=== PATIENT | female | born 1995 | race Two or more races ===

== ENCOUNTER 2024-02-02 11:11 | Outpatient (AMB) | payer OTHER, SELFPAY ==
--- NOTE | 2024-02-02 11:13 | A.OFFPC_ITS ---
Vital Signs 02/02/24 11:14 Height 5 ft 4 in Weight 153 lb BMI 26.3 BP 114/68 Blood Pressure Location Lt brachial Position Sitting Intake Visit Reasons: PE Intake Note: Patient here for a physical exam Roper Operator Required: No Accompanied by: Self / Same As Patient Allergies No Known Allergies Allergy (Verified 02/02/24 11:22) Medication List - Last Reconciled 02/02/24 by Kervin Darden PA-C No Known Home Meds Tobacco use date assessed: 02/02/24 Dental Screening Dental Screen Date: 02/02/24 Did you have a dental visit in the last 12 months?: Yes Did you have a dental problem in the last 6 months where you did not have access to dental care?: No Was dental information given to patient?: Patient has dentist HPI PE HPI Details Patient is a 28-year-old female here today for a new patient annual physical. Patient recently had a baby boy born prematurely. There has been complication. concerns--> patient reports she has been having some difficulty with her mood and anxiety as she has had a premature baby in December to have complications with her kidney and now in NICU with [place]. She is interested in mental health therapist and also interested in starting medication to help her with her mood and anxiety. 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 Vaccine: Declines COVID vacc, interested in getting flu shot, she does report getting tetanus vaccine during a . [facility] Surgical History No pertinent past surgical history Family History Maternal Aunt Breast cancer associated with mutation in NEO gene Social History (Updated 02/02/24 @ 11:33 by Kervin Darden PA-C) Housing: Apartment Alcohol intake: current Alcohol intake frequency: holidays/special occasions only Patient Tobacco Use Status: Never used Tobacco e-Cigarette/Vaping Use: Never Used Second Hand Smoke Exposure: No Substance Use Type: Marijuana service: No Current occupational status: employed Current occupation: [employer] Current occupational exposures/hazards: No Cognitive needs: No Hearing needs: No Vision needs: No Questionnaire PHQ-9 Over the last 2 weeks, how often have you been bothered by any of the following problems? 1. Little interest or pleasure in doing things: several days 2. Feeling down, depressed, or hopeless: several days 3. Trouble falling or staying asleep, or sleeping too much: several days 4. Feeling tired or having little energy: more than half the days 5. Poor appetite or overeating: more than half the days 6. Feeling bad about yourself - or that you are a failure or have let yourself or your family down: not at all 7. Trouble concentrating on things, such as reading the newspaper or watching television: not at all 8. Moving or speaking so slowly that other people could have noticed. Or the opposite - being so fidgety or restless that you have been moving around a lot more than usual: not at all 9. Thoughts that you would be better off or of hurting yourself in some way: not at all Total score: 7 Depression Screening Interpretation: Positive Depression Screening Follow-up: Existing condition Depression Screening Done: Yes 41729 - PHQ-9 Billing: Yes Source: Developed by Drs. Sam Dean, Gisela Leyva, Lincoln Barraza and colleagues, with an educational yumi from [employer]. Thrive Questionnaire Date Thrive assessed: 01/31/24 I am a: Patient What is your living situation today?: I have a steady place to live Within the past 12 months, did the food you bought not last and you didn't have the money to get more?: Never true Within the past 12 months, did you worry whether your food would run out before you got money to buy more?: Never true Do you have trouble paying for medicines?: No Do you have trouble getting transportation to medical appointments?: No Do you have trouble paying your heating and electricity bill?: No Do you have trouble taking care of your child, family member or friend?: No Do you have trouble with day-to-day activities such as bathing, preparing meals, shopping, managing finances, etc.?: No Are you currently unemployed and looking for a job?: No Are you interested in more education?: No Please select the resources that you would like help with: None Currently or been in a relationship where the following occur: No concerns reported THRIVE Score: 0 AUDIT C Alcohol Use Questionnaire (AUDIT-C) 1. How often do you have a drink containing alcohol?: Monthly or less 2. How many drinks containing alcohol do you have on a typical day when you are drinking?: 3 or 4 3. How often do you have six or more drinks on one occasion?: Less than monthly Total Score: 3 QUANG-7 AMB Questionnaire QUANG-7 Date QUANG - 7 assessed: 02/02/24 Feeling nervous, anxious, or on edge: 3 = Nearly every day Not being able to stop or control worryin = Nearly every day Worrying too much about different things: 3 = Nearly every day Trouble relaxin = Nearly every day Being so restless that it is hard to sit still: 0 = Not at all Becoming easily annoyed or irritable: 3 = Nearly every day Feeling afraid as if something awful might happen: 0 = Not at all Total QUANG-7 score (0-4 normal; 5-9 mild; 10-14 moderate; 15-21 severe): 15 Source: Developed by Drs. Sam Dean, Gisela Leyva, Lincoln Barraza and colleagues, with an educational yumi from [employer]. UQANG-7 Assessment Billing QUANG-7 Assessment Tool: QUANG-7 Assessment 43207 Review of Systems Const Denies body aches, Denies chills, Denies excessive sweating, Denies fatigue, Denies fever(s) and Denies headache(s) Eyes Denies blurry vision ENT Denies dysphagia, Denies vertigo, Denies dizziness, Denies headache(s), Denies hearing loss and Denies tinnitus Card Denies chest pain, Denies chest pain with activity, Denies syncope, Denies irregular heart rhythm and Denies dyspnea Resp Denies chest congestion, Denies cough, Denies hemoptysis, Denies dyspnea and Denies wheezing GI Denies abdominal pain, Denies melena, Denies hematochezia, Denies coffee ground emesis, Denies dysphagia, Denies diarrhea, Denies nausea and Denies vomiting Denies urinary frequency, Denies dysuria, Denies urinary hesitancy and Denies urinary urgency Musc Denies arthralgias, Denies limited range of motion, Denies muscle cramps and Denies muscle weakness Skin/Breast Denies rash and Denies skin ulcer Neuro Denies Abnormal speech present, Denies confusion, Denies vertigo, Denies dizziness, Denies syncope, Denies headache(s), Denies memory loss and Denies seizure-like activity Psych Denies anxiety, Denies confusion, Denies depression, Denies memory loss, Denies panic attacks and Denies paranoia Endo Denies excessive sweating, Denies fatigue, Denies flushing, Denies polydipsia and Denies polyuria Aller/Immun Denies wheezing Physical exam (Primary Care) Vital Signs: Last Vital Signs BP 114/68 02/02/24 11:14 BMI result Body Mass Index 26.3 Tobacco/Smoking Status: Tobacco use Status Tobacco use date assessed 02/02/24 02/02/24 11:17 Patient Tobacco Use Status Never used Tobacco 02/02/24 11:33 e-Cigarette/Vaping Use Never Used 02/02/24 11:33 PHQ-9: PHQ-9 Score PHQ-9: Total score 7 02/02/24 11:43 Depression Screening Interpretation: Positive Depression Screening Follow-up: Existing condition Thrive Assessment: Date of Thrive Assessment Date Thrive assessed 01/31/24 02/02/24 11:17 Currently or been in a relationship where the following occur: No concerns reported Const General: cooperative, comfortable, no acute distress, alert and awake; No confusion Orientation/consciousness: oriented to person, oriented to place, patient oriented x3 and No confusion HENMT Head: Yes normocephalic Ears: external ears normal and TM's normal bilaterally Face and sinus: No sinus tenderness Mouth: Normal oral and palatal mucosa present and tongue normal Teeth and gingiva: dentition normal and gingiva normal Throat: Yes posterior oropharynx normal, Yes tonsils normal and Yes uvula midline Eyes Conjunctivae: conjunctivae normal Sclerae: sclerae normal Pupils: Equal, round and reactive pupils present EOM: EOMs intact bilaterally Direct Ophthalmoscopy: No no photophobia Neck Neck: Yes no lymphadenopathy, No tender and Yes no JVD Thyroid: Thyroid normal Carotids: no bruits Chest Chest palpation & inspection: no tenderness Resp Effort & Inspection: normal respiratory effort, no audible wheezes, not labored and no stridor Auscultation: no crackles, no rales, no rhonchi and no wheezes Cardio Jugular venous distension: no JVD Rate: regular rate, not bradycardic and not tachycardic Rhythm: regular rhythm Bruits: no carotid bruits Peripheral pulses: Peripheral pulses 2+ throughout GI Inspection: Yes normal to inspection, No abdominal wall ecchymosis and No visible herniation Palpation (GI): Soft to palpation, nontender, no guarding, not rigid and No hepatosplenomegaly present Auscultation: normoactive bowel sounds General: Yes no CVA tenderness Back/Spine/Pelvis Back: no CVA tenderness and No back tenderness Cervical Spine: cervical ROM normal Thoracic/Lumbar Spine: thoracic and lumbar spine normal to inspection, straight leg raise negative bilaterally, No thoraco-lumbar ROM limited and No lumbar spinal tenderness Skin Lesions: no lesions Rashes: no rashes Wounds: no wounds Neuro General: oriented to person, oriented to place, patient oriented x3, CN's II-XI intact bilaterally and No confusion Cranial nerves: Yes Equal, round and reactive pupils present and Yes Normal accommodation reflex present Cognition (Neuro): normal cognition Speech: No Abnormal speech present Gait exam (Neuro): Normal gait present Motor exam (neuro): 5/5 motor strength present throughout Extrem Right upper extremity: full ROM; no cyanosis Left upper extremity: full ROM; no cyanosis Right lower extremity: no edema Left lower extremity: no edema Psych Appearance: grossly normal Mental Status: mental status grossly normal Affect: normal affect Attitude: cooperative Thought process: Normal thought process present Office Procedures Flu Questionnaire Does the patient have a severe egg allergy?: No Does the patient have severe life threatening allergies?: No Does the patient have a fever or illness today?: No Has the patient ever had Guillain-[place]awnee Syndrome?: No Has the patient ever had any past reaction to a flu shot?: No Immunizations Fluarix Triv [id number] (PF) 45 mcg (15 mcg x 3)/0.5 mL IM syringe Performing Provider: Kervin Darden PA-C [facility] Administered by: YOSI Louis on 02/02/24 11:43 Dose Route Admin Location Dispensed Lot Number Expiration Date [employer] 0.5 mL IM Left Deltoid 0.5 mL [id number] 10/31/24 [id number] [employer] VIS Given Date VIS Provided VIS Publication Date 02/02/24 Single Vaccine 20 Eligibility Eligibility Date Funding Source Not [facility] Eligible 02/02/24 Private Coding Level of Care Code Est Pt Prev Care 18-39y(04093) Diagnoses Annual physical exam Z00.00 anxiety O99.345; F41.8 Additional Codes QUANG-7 Assessment Billing - QUANG-7 Assessment Tool: QUANG-7 Assessment 26052 ([id number]) Assessment & Plan Assessment & Plan (1) Annual physical exam: Code(s): Z00.00 - Encounter for general adult medical examination without abnormal findings Category: Medical Plan: As per HPI (2) anxiety: Code(s): O99.345 - Other mental disorders complicating the puerperium; F41.8 - Other specified anxiety disorders Category: Medical Plan: Patient's QUANG-7 score positive for moderate anxiety. As per HPI patient seems to have been suffering with a anxiety syndrome. She is willing to try sertraline 50 mg daily. She is also interested in setting up with a mental health therapist to talk things throat. Will follow up in 4 weeks to evaluate the effectiveness of the SSRI therapy. Orders: Orders Complete Blood Count no Diff Today Z13.1 - Encounter for screening for diabetes mellitus Influenza [id number] Immunization Today Z23 - Encounter for immunization Comprehensive [place]. Panel Fast Today Z13.1 - Encounter for screening for diabetes mellitus Referrals Counseling Referral F41.8 - Other specified anxiety disorders, O99.345 - Other mental disorders complicating the puerperium Medications: New sertraline 50 mg PO DAILY 30 tabs 1RF 30 days F41.8 - Other specified anxiety disorders, O99.345 - Other mental disorders complicating the puerperium
[2024-02-02 11:14] VITALS: BP 114/68; BMI 26.3
== END 2024-02-02 11:49 | disposition home or self-care (01) ==
PROVIDERS: PCP Physician Assistant; Visit Provider Physician Assistant
DX: Z00.00 Encounter for general adult medical examination without abnormal findings (principal); O99.345 Other mental disorders complicating the puerperium; F41.8 Other specified anxiety disorders; Z23 Encounter for immunization

== ENCOUNTER → 2024-02-02 11:11 | Outpatient (BNVA) | payer OTHER, SELFPAY | PROVIDERS: PCP Physician Assistant; Visit Provider Physician Assistant | DX: Z00.01 Encounter for general adult medical examination with abnormal findings (principal); Z23 Encounter for immunization; O99.345 Other mental disorders complicating the puerperium; F41.8 Other specified anxiety disorders | CPT/HCPCS: 90471; 90656; 96127; 99395 ==

== ENCOUNTER 2024-03-07 14:19 | Outpatient (AMB) | payer OTHER, SELFPAY ==
--- NOTE | 2024-03-07 14:18 | MHC.PC.OV ---
Intake Visit Reasons: Follow-up anxiety (telehealth) Allergies No Known Allergies Allergy (Verified 02/02/24 11:22) Tobacco use date assessed: 02/02/24 Dental Screening Dental Screen Date: 02/02/24 HPI Follow-up anxiety (telehealth) HPI Details Patient is 28-year-old female being evaluated today via telephone only. At last visit we discussed her anxiety and she was interested in starting SSRI therapy. She reports she did start taking sertraline for a few weeks and found it effective though she has stopped taking the medication due to her son coming back Home from the hospital. Unfortunately her son return back to the hospital due to complications. Has restarted the medication since her has son return back to the hospital. She will be calling [facility] to start therapy. [facility] Surgical History No pertinent past surgical history Family History Maternal Aunt Breast cancer associated with mutation in NEO gene Social History Housing: Apartment Alcohol intake: current Alcohol intake frequency: holidays/special occasions only Patient Tobacco Use Status: Never used Tobacco e-Cigarette/Vaping Use: Never Used Second Hand Smoke Exposure: No Substance Use Type: Marijuana service: No Current occupational status: employed Current occupation: [employer] Current occupational exposures/hazards: No Cognitive needs: No Hearing needs: No Vision needs: No Questionnaire Thrive Questionnaire Date Thrive assessed: 01/31/24 QUANG-7 AMB Questionnaire QUANG-7 Date QUANG - 7 assessed: 02/02/24 Source: Developed by Drs. Sam Dean, Gisela Leyva, Lincoln Barraza and colleagues, with an educational yumi from [employer] Review of Systems Const Denies headache(s) Eyes Denies loss of vision ENT Denies vertigo, Denies dizziness, Denies headache(s) and Denies sore throat Card Denies chest pain, Denies leg edema and Denies lightheadedness Resp Denies cough, Denies hemoptysis and Denies wheezing GI Denies abdominal pain, Denies melena, Denies constipation, Denies diarrhea and Denies vomiting Denies urinary frequency, Denies dysuria and Denies urinary urgency Musc Denies arthralgias, Denies joint swelling, Denies numbness and Denies tingling Neuro Denies behavioral changes, Denies vertigo, Denies dizziness, Denies headache(s), Denies loss of vision, Denies memory loss, Denies numbness and Denies tingling Psych Reports anxiety, Denies behavioral changes, Denies depression, Reports difficulty concentrating, Reports irritability, Denies memory loss and Denies panic attacks Sean/Lymph Denies easy bleeding and Denies easy bruising Aller/Immun Denies wheezing Physical exam (Primary Care) Tobacco/Smoking Status: Tobacco use Status Tobacco use date assessed 02/02/24 03/07/24 14:18 Patient Tobacco Use Status Never used Tobacco 03/07/24 14:18 e-Cigarette/Vaping Use Never Used 03/07/24 14:18 Thrive Assessment: Date of Thrive Assessment Date Thrive assessed 01/31/24 03/07/24 14:18 Telehealth Telehealth Telehealth Platform: Telephone Location of provider rendering services: practice address Location of patient: address on file Patient Identification confirmed using: Name, : Yes Telehealth method: voice only Patient verbally consented to treatment: Yes Patient verbally consented to billing insurance company: Yes Patient informed of any privacy concerns related to visit: Yes Minutes spent on Phone/Video with Pt.: 11 Coding Level of Care Code Tele Est Pt Level 3 (52294) Diagnoses anxiety O99.345; F41.8 Assessment & Plan Assessment & Plan (1) anxiety: Code(s): O99.345 - Other mental disorders complicating the puerperium; F41.8 - Other specified anxiety disorders Category: Medical Plan: Patient reports her anxiety is a bit better though still has her moments . She does find benefit from SSRI therapy when taking it consistently. She reports she was start taking this medication more consistently . She will be calling to set up an appointment with cognitive behavioral therapy Medications: Refilled sertraline 50 mg PO DAILY 30 tabs 1RF 30 days F41.8 - Other specified anxiety disorders, O99.345 - Other mental disorders complicating the puerperium
== END 2024-03-07 16:48 | disposition home or self-care (01) ==
LOC: HO.HMCH 14:19
PROVIDERS: PCP Physician Assistant; Visit Provider Physician Assistant
DX: O99.345 Other mental disorders complicating the puerperium (principal); F41.8 Other specified anxiety disorders

== ENCOUNTER 2025-02-09 10:17 | Outpatient (AMB) | payer OTHER, SELFPAY ==
--- NOTE | 2025-02-09 10:37 | A.OFFPC_ITS ---
Vital Signs 02/09/25 10:38 Height 5 ft 4 in Weight 168 lb 6 oz BMI 28.9 BP 130/68 Blood Pressure Location Lt brachial Position Sitting Pulse 94 Pulse Source Pulse Oximeter Temp 97.3 F Temp Source Temporal Artery Scan Pulse Oximetry (%) 98 Oxygen Delivery Method Room Air Intake Visit Reasons: annual exam Intake Note: Patient is here today for a physical. 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 Hospice Case Manager: Not Required per policy Accompanied by: Self / Same As Patient Allergies No Known Allergies Allergy (Verified 02/09/25 11:02) Medication List - Last Reconciled 02/09/25 by Kervin Darden PA-C sertraline 50 mg PO DAILY 30 days Tobacco use date assessed: 02/09/25 Dental Screening Dental Screen Date: 02/09/25 Did you have a dental visit in the last 12 months?: Yes Did you have a dental problem in the last 6 months where you did not have access to dental care?: No Was dental information given to patient?: Patient has dentist HPI annual exam HPI Details Patient is a 29-year-old female here today for a annual physical Patient recently had a baby boy born prematurely. There has been complication. ? Environmental allergies: The patient reports symptoms of allergic rhinitis, including nasal congestion, sneezing, and itchy eyes, which began after acquiring kittens. These symptoms are more pronounced at home and have been partially alleviated by using an air purifier. Grief : The patient is experiencing a grief reaction following the recent of her son, with symptoms of sadness and anxiety. She finds some relief in talking to her sister but is considering professional therapy for additional support. Left knee pain: The patient reports left knee pain that began spontaneously, described as a stuck sensation, with discomfort during bending or kneeling. There is no swelling, and her sister's history of arthritis raises concerns about a similar condition. 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 Vaccine: Declines COVID vacc, interested in getting flu shot, up-to-date tetanus. [facility] Surgical History No pertinent past surgical history Family History Maternal Aunt Breast cancer associated with mutation in NEO gene Social History (Updated 02/09/25 @ 11:14 by Kervin Darden PA-C) Housing: Apartment Alcohol intake: current Alcohol intake frequency: holidays/special occasions only Patient Tobacco Use Status: Never used Tobacco e-Cigarette/Vaping Use: Never Used Second Hand Smoke Exposure: No Substance Use Type: Marijuana service: No Current occupational status: employed Current occupation: [employer] Current occupational exposures/hazards: No Cognitive needs: No Hearing needs: No Vision needs: No Questionnaire PHQ-9 Over the last 2 weeks, how often have you been bothered by any of the following problems? 1. Little interest or pleasure in doing things: more than half the days 2. Feeling down, depressed, or hopeless: more than half the days 3. Trouble falling or staying asleep, or sleeping too much: more than half the days 4. Feeling tired or having little energy: nearly every day 5. Poor appetite or overeating: nearly every day 6. Feeling bad about yourself - or that you are a failure or have let yourself or your family down: several days 7. Trouble concentrating on things, such as reading the newspaper or watching television: not at all 8. Moving or speaking so slowly that other people could have noticed. Or the opposite - being so fidgety or restless that you have been moving around a lot more than usual: not at all 9. Thoughts that you would be better off or of hurting yourself in some way: not at all Total score: 13 Depression Screening Interpretation: Positive Depression Screening Follow-up: Existing condition and Community Mental Health Worker F/U Depression Screening Done: Yes 21481 - PHQ-9 Billing: Yes Source: Developed by Drs. Sam Dean, Gisela Leyva, Lincoln Barraza and colleagues, with an educational yumi from [employer]. Thrive Questionnaire Date Thrive assessed: 02/07/25 I am a: Patient What is your living situation today?: I have a steady place to live Within the past 12 months, did the food you bought not last and you didn't have the money to get more?: Never true Within the past 12 months, did you worry whether your food would run out before you got money to buy more?: Never true Do you have trouble paying for medicines?: No Do you have trouble getting transportation to medical appointments?: No Do you have trouble paying your heating and electricity bill?: No Do you have trouble taking care of your child, family member or friend?: No Do you have trouble with day-to-day activities such as bathing, preparing meals, shopping, managing finances, etc.?: No Are you currently unemployed and looking for a job?: No Are you interested in more education?: No Please select the resources that you would like help with: None Currently or been in a relationship where the following occur: I choose not to answer THRIVE Score: 0 AUDIT C Alcohol Use Questionnaire (AUDIT-C) 1. How often do you have a drink containing alcohol?: Monthly or less 2. How many drinks containing alcohol do you have on a typical day when you are drinking?: 3 or 4 3. How often do you have six or more drinks on one occasion?: Less than monthly Total Score: 3 QUANG-7 AMB Questionnaire QUANG-7 Date QUANG - 7 assessed: 02/09/25 Feeling nervous, anxious, or on edge: 3 = Nearly every day Not being able to stop or control worryin = Several days Worrying too much about different things: 1 = Several days Trouble relaxin = Several days Being so restless that it is hard to sit still: 1 = Several days Becoming easily annoyed or irritable: 2 = More than half the days Feeling afraid as if something awful might happen: 0 = Not at all Total QUANG-7 score (0-4 normal; 5-9 mild; 10-14 moderate; 15-21 severe): 9 Source: Developed by Drs. Sam Dean, Gisela Leyva, Lincoln Barraza and colleagues, with an educational yumi from [employer]. QUANG-7 Assessment Billing QUANG-7 Assessment Tool: QUANG-7 Assessment 83415 Review of Systems Const Denies body aches, Denies chills, Denies excessive sweating, Denies fatigue, Denies fever(s) and Denies headache(s) Eyes Denies blurry vision ENT Denies dysphagia, Denies vertigo, Denies dizziness, Denies headache(s), Denies hearing loss and Denies tinnitus Card Denies chest pain, Denies chest pain with activity, Denies syncope, Denies irregular heart rhythm and Denies dyspnea Resp Denies chest congestion, Denies cough, Denies hemoptysis, Denies dyspnea and Denies wheezing GI Denies abdominal pain, Denies melena, Denies hematochezia, Denies coffee ground emesis, Denies dysphagia, Denies diarrhea, Denies nausea and Denies vomiting Denies urinary frequency, Denies dysuria, Denies urinary hesitancy and Denies urinary urgency Musc Denies arthralgias, Denies limited range of motion, Denies muscle cramps and Denies muscle weakness Skin/Breast Denies rash and Denies skin ulcer Neuro Denies Abnormal speech present, Denies confusion, Denies vertigo, Denies dizziness, Denies syncope, Denies headache(s), Denies memory loss and Denies seizure-like activity Psych Denies anxiety, Denies confusion, Denies depression, Denies memory loss, Denies panic attacks and Denies paranoia Endo Denies excessive sweating, Denies fatigue, Denies flushing, Denies polydipsia and Denies polyuria Aller/Immun Denies wheezing Physical exam (Primary Care) Vital Signs: Last Vital Signs Temp 97.3 F 02/09/25 10:38 Pulse 94 02/09/25 10:38 BP 130/68 02/09/25 10:38 Pulse Ox 98 02/09/25 10:38 Oxygen Delivery Method Room Air 02/09/25 10:38 BMI result Body Mass Index 28.9 Tobacco/Smoking Status: Tobacco use Status Tobacco use date assessed 02/09/25 02/09/25 10:52 Patient Tobacco Use Status Never used Tobacco 02/09/25 11:14 e-Cigarette/Vaping Use Never Used 02/09/25 11:14 PHQ-9: PHQ-9 Score PHQ-9: Total score 13 02/09/25 11:32 Depression Screening Interpretation: Positive Depression Screening Follow-up: Existing condition and Community Mental Health Worker F/U Thrive Assessment: Date of Thrive Assessment Date Thrive assessed 02/07/25 02/09/25 10:52 Currently or been in a relationship where the following occur: I choose not to answer Const General: cooperative, comfortable, no acute distress, alert and awake; No confusion Orientation/consciousness: oriented to person, oriented to place, patient oriented x3 and No confusion HENMT Head: Yes normocephalic Ears: external ears normal and TM's normal bilaterally Face and sinus: No sinus tenderness Mouth: Normal oral and palatal mucosa present and tongue normal Teeth and gingiva: dentition normal and gingiva normal Throat: Yes posterior oropharynx normal, Yes tonsils normal and Yes uvula midline Eyes Conjunctivae: conjunctivae normal Sclerae: sclerae normal Pupils: Equal, round and reactive pupils present EOM: EOMs intact bilaterally Direct Ophthalmoscopy: No no photophobia Neck Neck: Yes no lymphadenopathy, No tender and Yes no JVD Thyroid: Thyroid normal Carotids: no bruits Chest Chest palpation & inspection: no tenderness Resp Effort & Inspection: normal respiratory effort, no audible wheezes, not labored and no stridor Auscultation: no crackles, no rales, no rhonchi and no wheezes Cardio Jugular venous distension: no JVD Rate: regular rate, not bradycardic and not tachycardic Rhythm: regular rhythm Bruits: no carotid bruits Peripheral pulses: Peripheral pulses 2+ throughout GI Inspection: Yes normal to inspection, No abdominal wall ecchymosis and No visible herniation Palpation (GI): Soft to palpation, nontender, no guarding, not rigid and No hepatosplenomegaly present Auscultation: normoactive bowel sounds General: Yes no CVA tenderness Back/Spine/Pelvis Back: no CVA tenderness and No back tenderness Cervical Spine: cervical ROM normal Thoracic/Lumbar Spine: thoracic and lumbar spine normal to inspection, straight leg raise negative bilaterally, No thoraco-lumbar ROM limited and No lumbar spinal tenderness Skin Lesions: no lesions Rashes: no rashes Wounds: no wounds Neuro General: oriented to person, oriented to place, patient oriented x3, CN's II-XI intact bilaterally and No confusion Cranial nerves: Yes Equal, round and reactive pupils present and Yes Normal accommodation reflex present Cognition (Neuro): normal cognition Speech: No Abnormal speech present Gait exam (Neuro): Normal gait present Motor exam (neuro): 5/5 motor strength present throughout Extrem Right upper extremity: full ROM; no cyanosis Left upper extremity: full ROM; no cyanosis Right lower extremity: no edema Left lower extremity: no edema Psych Appearance: grossly normal Mental Status: mental status grossly normal Affect: normal affect Attitude: cooperative Thought process: Normal thought process present Office Procedures Flu Questionnaire Does the patient have a severe egg allergy?: No Does the patient have severe life threatening allergies?: No Does the patient have a fever or illness today?: No Has the patient ever had Guillain-[place] Syndrome?: No Has the patient ever had any past reaction to a flu shot?: No Immunizations Fluarix [id number] (PF) 45 mcg (15 mcg x 3)/0.5 mL IM syringe Performing Provider: Kervin Darden PA-C Performing [facility] [place] [facility] Administered by: Erendira Tom CMA on 02/09/25 11:32 Dose Route Admin Location Dispensed Lot Number Expiration Date NDC Forensic Computer Examiner 0.5 mL IM Left Deltoid 0.5 mL [id number] 10/31/25 [id number] [employer] VIS Given Date VIS Provided VIS Publication Date 02/09/25 Single Vaccine 24 Eligibility Eligibility Date Funding Source Not [facility] Eligible 02/09/25 Private Coding Level of Care Code Est Pt Prev Care 18-39y([id number]) Diagnoses Annual physical exam Z00.00 MDD (major depressive disorder), recurrent episode, moderate F33.1 Grief at loss of child F43.21; Z63.4 Non-seasonal allergic rhinitis due to other allergic trigger J30.89 Allergic rhinitis seasonality: non-seasonal Allergic rhinitis trigger: other Left anterior knee pain M25.562 Additional Codes PHQ-9 - 25817 - PHQ-9 Billing: Yes ([id number]) QUANG-7 Assessment Billing - QUANG-7 Assessment Tool: QUANG-7 Assessment 99508 ([id number]) Assessment & Plan Assessment & Plan (1) Annual physical exam: Code(s): Z00.00 - Encounter for general adult medical examination without abnormal findings Category: Medical Plan: As per HPI (2) MDD (major depressive disorder), recurrent episode, moderate: Code(s): F33.1 - Major depressive disorder, recurrent, moderate Category: Medical Plan: Patient's PHQ-9 score positive for depression which has been existing condition for her. She is now off of SSRI therapy though recently as her son who is battling serious health issues for awhile. For her grief reaction, she is encouraged to continue support from her sister and consider professional therapy. Medication options were discussed, but she prefers non-pharmacological approaches currently. (3) Grief at loss of child: Code(s): F43.21 - Adjustment disorder with depressed mood; Z63.4 - Disappearance and of family member Category: Medical Plan: As above (4) Allergic rhinitis: Code(s): J30.9 - Allergic rhinitis, unspecified Category: Medical Qualifiers: Allergic rhinitis seasonality: non-seasonal Allergic rhinitis trigger: other Qualified Code(s): J30.89 - Other allergic rhinitis Plan: The patient will have allergy testing to determine specific allergens, with a prescription for allergy medication to manage symptoms. An air purifier has been helpful in reducing symptoms at home. (5) Left anterior knee pain: Code(s): M25.562 - Pain in left knee Category: Medical Plan: An x-ray of the left knee will be conducted to assess for arthritis or other issues. Consideration of a knee brace or anti-inflammatory gel is advised if discomfort continues. Orders: Orders Vitamin D 25-OH Total Today F33.1 - Major depressive disorder, recurrent, moderate XR knee LT 4V Today M25.562 - Pain in left knee Resp Allergy Profile Region I Today J30.89 - Other allergic rhinitis, R05.9 - Cough, unspecified Complete Blood Count no Diff Today Z13.1 - Encounter for screening for diabetes mellitus Comprehensive [place]. 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
[2025-02-09 10:38] VITALS: BP 130/68; PULSE 94; TEMP 36.3; O2SAT 98; BMI 28.9
== END 2025-02-09 11:34 | disposition home or self-care (01) ==
LOC: HO.HMCH 10:19
PROVIDERS: PCP Physician Assistant; Visit Provider Physician Assistant
DX: Z00.00 Encounter for general adult medical examination without abnormal findings (principal); F33.1 Major depressive disorder, recurrent, moderate; F43.21 Adjustment disorder with depressed mood; Z63.4 Disappearance and death of family member; J30.89 Other allergic rhinitis; M25.562 Pain in left knee; Z23 Encounter for immunization

== ENCOUNTER → 2025-02-09 10:17 | Outpatient (BNVA) | payer OTHER, SELFPAY | PROVIDERS: PCP Physician Assistant; Visit Provider Physician Assistant | DX: Z00.00 Encounter for general adult medical examination without abnormal findings (principal); M25.562 Pain in left knee; F33.1 Major depressive disorder, recurrent, moderate; F43.21 Adjustment disorder with depressed mood; J30.89 Other allergic rhinitis; R05.9 Cough, unspecified; F41.8 Other specified anxiety disorders; Z23 Encounter for immunization; Z63.4 Disappearance and death of family member | CPT/HCPCS: 90471; 90656; 96127; 99395 ==

== ENCOUNTER 2025-02-13 11:04 | Outpatient (REF) | payer OTHER, SELFPAY ==
--- NOTE | ~2025-02-13 | XR_ITS ---
EXAMINATION: XR KNEE 4 OR MORE VIEWS LEFT HISTORY: M25.562 - Pain in left knee COMPARISON: There are no prior studies available for comparison. FINDINGS: Four views of the left knee are submitted. Osseous mineralization is normal. There is no fracture or dislocation. The joint spaces are preserved. The soft tissues are unremarkable. There is no joint effusion. XR/XR knee LT 4V IMPRESSION: Unremarkable examination of the left knee. Electronically signed by: Sam Bryson MD 02/14/2025 08:40 AM EDT
--- OUTSIDE RECORDS SUMMARY | 2025-02-13 11:09 | XMS_ITS ---
[facility] Name [facility] Organization Unknown Results Test Name/Text Value Interpretation Date Range Source Leukocyte esterase Ur Ql Strip Negative Normal 10/01/2023 - [facility] WBC #/area UrnS HPF 1.0 per hpf Normal 10/01/2023 0 - 4 [facility] Bilirub Ur Strip-mCnc Negative Normal 10/01/2023 - [facility] Specimen type Unspecified Urine Normal 10/01/2023 [facility] Glucose Ur Strip-mCnc 150.0 mg/dL Above high normal 10/01/2023 0 - 99 [facility] Sp Gr Ur Strip 1.005 NA Normal 10/01/2023 1.003 - 1.03 [facility] pH Ur Strip 8.0 NA Normal 10/01/2023 5 - 8 [facility] RBC #/area UrnS HPF 0.0 per hpf Normal 10/01/2023 0 - 4 [facility] Prot Ur Strip-mCnc Moderate (100 mg/dL) Abnormal 10/01/2023 - [facility] Hgb Ur Ql Strip Moderate Abnormal 10/01/2023 - [facility] Ketones Ur Strip-mCnc Negative Normal 10/01/2023 - [facility] Color Ur Straw Normal 10/01/2023 [facility] Clarity Ur Clear Normal 10/01/2023 [facility] Nitrite Ur Ql Strip Negative Normal 10/01/2023 - [facility] ABO/RH BLOOD TYPE O NEGATIVE Normal 10/01/2023 [facility] ANTIBODY SCREEN, SQ NEGATIVE Normal 10/01/2023 [facility] History of Medication Use Medication Directions Dispensed Refills Start Date End Date Stat us M-IVANNA PLUS 27 mg iron- 1 mg Tablet 09/29/2023 active acyclovir (ZOVIRAX) 400 MG tablet TAKE 1 TABLET BY MOUTH 3 TIMES A DAY FOR 7 DAYS 06/29/2023 active PNV,calcium 90-quyk-akjwv acid 27 mg iron- 1 mg Tablet Take 1 tablet by mouth 06/17/2023 active NIGHTTIME SLEEP-AID, DOXYLAMN, 25 mg tablet TAKE 1 TABLET BY MOUTH DAILY BEFORE BED. MAY TAKE ADDITIONAL 1 TABLET IN MORNING IF STILL NAUSEOUS 05/30/2023 active VITAMIN B-6 25 MG tablet TAKE 1 TABLET BY MOUTH 3 TIMES A DAY NEEDED FOR NAUSEA AND VOMITING 2023 active acyclovir (ZOVIRAX) 400 mg tablet Take 1 tablet (400 mg total) by mouth 3 (three) times a day. active Problems Problem Status Onset Date Problem Type Date of Resoluti on Source Anhydramnios in second trimester active 2023-09-30 [facility] [place]dronephrosis of fetus on ultrasound active 2023-10-[facility] cardiac anomaly complicating , antepartum, fetus 1 active 2023-09-30 [facility] and not yet delivered in third trimester active 2023-10-01 ProblemAct [facility] Immunizations Vaccine Date Source Lot Number Status Rho (D) Immune Globulin 10/01/2023 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 [facility] [place]2023 Ambulatory [facility] [place]/09/2023 Ambulatory Bladder-neck obstruction Bladder-neck obstruction [facility] [place] 10/06/2023 Ambulatory Maternal care for other (suspected) abnormality and damage, genitourinary anomalies, not applicable or unspecified Maternal care for other (suspected) abnormality and damage, genitourinary anomalies, not applicable or unspecified [facility] [place]/06/2023 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 [facility] [place] 10/06/2023 Ambulatory [facility] [place] 10/01/2023 Ambulatory Encounter for supervision of normal , unspecified, third trimester Encounter for supervision of normal , unspecified, third trimester [facility] [place] 10/01/2023 Ambulatory Maternal care for other (suspected) abnormality and damage, genitourinary anomalies, not applicable or unspecified Maternal care for other (suspected) abnormality and damage, genitourinary anomalies, not applicable or unspecified [facility] [place] 10/01/2023 Ambulatory Maternal care for other (suspected) abnormality and damage, genitourinary anomalies, not applicable or unspecified Maternal care for other (suspected) abnormality and damage, genitourinary anomalies, not applicable or unspecified [facility] [place] 10/01/2023 Ambulatory Maternal care for other (suspected) abnormality and damage, genitourinary anomalies, not applicable or unspecified Maternal care for other (suspected) abnormality and damage, genitourinary anomalies, not applicable or unspecified [facility] [place] 10/01/2023 Ambulatory Maternal care for other (suspected) abnormality and damage, genitourinary anomalies, not applicable or unspecified Maternal care for other (suspected) abnormality and damage, genitourinary anomalies, not applicable or unspecified [facility] [place] 10/01/2023 Ambulatory Maternal care for other (suspected) abnormality and damage, genitourinary anomalies, not applicable or unspecified Maternal care for other (suspected) abnormality and damage, genitourinary anomalies, not applicable or unspecified [facility] [place] 09/29/2023 Ambulatory [facility] [place] 09/29/2023 Ambulatory [facility] [place] 09/29/2023 Ambulatory Maternal care for other (suspected) abnormality and damage, cardiac anomalies, fetus 1 Maternal care for other (suspected) abnormality and damage, cardiac anomalies, fetus 1 [facility] [place] 09/29/2023 Ambulatory Maternal care for other (suspected) abnormality and damage, genitourinary anomalies, not applicable or unspecified Maternal care for other (suspected) abnormality and damage, genitourinary anomalies, not applicable or unspecified [facility] [place] 09/29/2023 Ambulatory Maternal care for other (suspected) abnormality and damage, genitourinary anomalies, not applicable or unspecified Maternal care for other (suspected) abnormality and damage, genitourinary anomalies, not applicable or unspecified [facility] [place] 09/29/2023 Ambulatory Maternal care for other (suspected) abnormality and damage, genitourinary anomalies, not applicable or unspecified Maternal care for other (suspected) abnormality and damage, genitourinary anomalies, not applicable or unspecified [facility] [place] 09/29/2023 Ambulatory [facility] [place] 09/29/2023 Care Team Organization Name Specialty Phone Email Start Date End Da te [facility] Primary [facility] 10/01/2023 [facility] 10/01/2023 07/20/2024 [facility] 10/01/2023 [facility] Primary Care 09/29/2023 11/15/2024 [facility] REFERRED SELF Primary Care 09/29/2023
--- OUTSIDE RECORDS SUMMARY | 2025-02-13 11:09 | XMS_ITS | Clinical Summary ---
Author Organization [facility] Address [address] [place] [address] Care Team Providers Care Live Truck Operator Name Role Phone Riddhi Grossman MD Unavailable Carlos Kilgore MD Unavailable [phone] Puja Locke MD Unavailable Kita Maldonado MD Unavailable [phone] Tiburcio Plascencia MD Unavailable Cheryl Verdugo NP Primary Care Provider Jennie Nixon Unavailable [phone] Yesenia Harper MD Unavailable [phone] Anya Madison MD Unavailable [phone] Source Comments Please note that some or all of the patient's information could have additional privacy protections. State laws allow health care providers to render certain types of treatment to minors without parental consent. Please do not assume that this information can be shared solely by obtaining just the consent of the patient's parent/guardian. Please determine if all or part of the patient's care was rendered without parent/guardian involvement. And, if so, obtain the minor's consent prior to disclosure.[facility] Allerg[facility] No known active allergies Medications 25/iron fum/folic/dha (-1 ORAL) Take by mouth Active PNV,calcium 15-lpim-sitmy acid 27 mg iron- 1 mg Tablet Take 1 tablet by mouth 02/14/202 4 Active acyclovir (ZOVIRAX) 400 MG tablet TAKE 1 TABLET BY MOUTH 3 TIMES A DAY FOR 7 DAYS 4 Active NIGHTTIME SLEEP-AID, DOXYLAMN, 25 mg tablet TAKE 1 TABLET BY MOUTH DAILY BEFORE BED. MAY TAKE ADDITIONAL 1 TABLET IN MORNING IF STILL NAUSEOUS 4 Active M- PLUS 27 mg iron- 1 mg Tablet 4 Active VITAMIN B-6 25 MG tablet TAKE 1 TABLET BY MOUTH 3 TIMES A DAY NEEDED FOR NAUSEA AND VOMITING 4 Active Active Problems Problem Noted Date Diagnosed Date Hydronephrosis of fetus on ultrasound 0 10/26/2023 Small pericardial effusion. Mild tricuspid regurgitation. cardiac screening in setting of lower urinary tract obstruction and oligo/anhydramnios. 09/30/2023 Assessment & Plan (09/30/2023 8:34 AM EDT): It was a pleasure to meeting Genie Bliss for cardiology consultation along with the [facility]. There is no evidence for structural congenital heart disease within the limitations of echocardiography. We do note mild tricuspid regurgitation and a small pericardial effusion. There is normal biventricular systolic function and normal heart rhythm analysis. We reviewed these results, as well as the limitations of echocardiography in detail with Genie and the father of the baby today using diagrams and drawings. We recommend a follow-up echocardiogram in 4-6 weeks or earlier as needed per OB/MFM/FCC teams. They expressed good understanding and agreement with the plan of care. Anhydramnios in second trimester 09/30/2023 Family History Medical History Relation Name Comments Arrhythmia Neg Hx Cardiac Surgery Neg Hx Cardiomyopathy Neg Hx Congenital heart disease Neg Hx Consanguinity Neg Hx Genetic disorder Neg Hx Sudden Cardiac Neg Hx Social History Tobacco Use Types Packs/Day Years Used Date Smoking Tobacco: Never Tobacco Cessation:Counseling Given: Not Answered Comments No Sex and Gender Information Value Date Recorded Sex Assigned at Not on file Legal Sex Female 10:33 AM EDT Gender Identity Not on file Sexual Orientation Not on file Last Filed Vital Signs Vital Sign Reading Time Taken Comments Blood Pressure 87/58 10/16/2023 11:12 AM EDT Pulse 101 10/16/2023 11:12 AM EDT Temperature - - Respiratory Rate - - Oxygen Saturation - - Inhaled Oxygen Concentration - - Weight 73.3 kg (161 lb 9.6 oz) 10/16/2023 11:12 AM EDT Height - - Body Mass Index - - Plan of Treatment Health Maintenance Due Date Last Done Comments DTaP/TDAP/TD VACCINES (1 - Tdap) 2002 ADOLESCENT HIV SCREENING 2008 COVID-19 Vaccine (2023-2 5 season) 2025 INFLUENZA (#1) 2025 NIRSEVIMAB VACCINES UNDER 8 MONTHS Aged Out No longer eligible based on patient's age to complete this topic Insurance [facility] [employer] Care Teams Live Truck Operator Relationship Specialty Start Date End Date Cheryl Verdugo NP [address] [place] [address] PCP - General 10/01/23 Riddhi Grossman MD [address] [place] [address] Obstetrics and Gynecology 09/25/23 Carlos Kilgore MD [address] [place] [address] Consulting Physician Pediatric Surgery 09/25/23 Puja Locke MD [facility] [place] [address] Maternal and Medicine 09/25/23 Kita Maldonado MD [address] [place] [address] Consulting Physician Neonatology 09/25/23 Tiburcio Plascencia MD [address] [place] [address] Consulting Physician Cardiology 09/25/23 Jennie Nixon [address] [place] [address] 10/01/23 Yesenia Harper MD [address] [place] [address] Consulting Physician Urology 10/08/23 Anya Madison MD [address] [place] [address] Consulting Physician Nephrology 10/08/23
--- OUTSIDE RECORDS SUMMARY | 2025-02-13 11:09 | XMS_ITS | Clinical Summary ---
Author Organization [facility] Address [address] [place] [address] Phone Care Team Providers Care Parks Worker Name Role Phone Unavailable Primary Care Provider Unavailabl e Social History Tobacco Use Types Packs/Day Years Used Date Smoking Tobacco: Never Assessed Comments Unknown Sex and Gender Information Value Date Recorded Sex Assigned at Not on file Legal Sex Female 3:18 PM EDT Gender Identity Not on file Sexual Orientation Not on file Plan of Treatment Not on file
--- OUTSIDE RECORDS SUMMARY | 2025-02-13 11:09 | XMS_ITS | Encounter Summary ---
Author Organization [facility] Address [address] [place] [address] Care Team Providers Care Manager Heavy Duty Name Role Phone Riddhi Grossman MD Unavailable Carlos Kilgore MD Unavailable Puja Locke MD Unavailable Kita Maldonado MD Unavailable [phone] Tiburcio Plascencia MD Unavailable Cheryl Verdugo NP Primary Care Provider Jennie Nixon Unavailable [phone] Yesenia Harper MD Unavailable [phone] Anya Madison MD Unavailable Encounter Details Date Type Department Care Team (Late st Contact Info) Description 11/24/2023 Patient Outreach [facility] Department of Cardiology [address] [place] [phone] Ludmila Wilkins RN [address] [place] [address] Social History Tobacco Use Types Packs/Day Years Used Date Smoking Tobacco: Never Comments Yes Sex and Gender Information Value Date Recorded Sex Assigned at Not on file Legal Sex Female 10:33 AM EDT Gender Identity Not on file Sexual Orientation Not on file documented as of this encounter Plan of Treatment Not on file documented as of this encounter Visit Diagnoses Not on filedocumented in this encounter Care Teams Manager Heavy Duty Relationship Specialty Start Date End Date O'Chon, Cheryl, RFID TECHNICIAN [address] [place] [address] PCP - General 10/01/23 Riddhi Grossman MD [address] [place] [address] Obstetrics and Gynecology 09/25/23 Carlos Kilgore MD [address] [place] [address] Consulting Physician Pediatric Surgery 09/25/23 Puja Locek MD [address] [place] [address] Maternal and Medicine 09/25/23 Kita Maldonado MD [address] [place] [address] Consulting Physician Neonatology 09/25/23 Tiburcio Plascencia MD [address] [place] [address] Consulting Physician Cardiology 09/25/23 Jennie Nixon [address] [place] [address] 10/01/23 Yesenia Harper MD [address] [place] [address] Consulting Physician Urology 10/08/23 Anya Madison MD [address] [place] [place] [address] Consulting Physician Nephrology 10/08/23 documented as of this encounter
--- OUTSIDE RECORDS SUMMARY | 2025-02-13 11:09 | XMS_ITS | Clinical Summary ---
Author Organization [facility] Address [address] [place] [address] Care Team Providers Care Mobile Health Vehicle Operator Name Role Phone Unknown Primary Care Provider [phone] Allergies No known active allergies Medications acyclovir (ZOVIRAX) 400 mg tablet Take 1 tablet (400 mg total) by mouth 3 (three) times a day. Active Active Problems Problem Noted Date Diagnosed Date and not yet delivered in [facility] 10/01/2023 Immunizations Immunization Administration Dates Next Due Rho (D) Immune Globulin 10/01/2023 Social History Tobacco Use Types Packs/Day Years Used Date Smoking Tobacco: Never Assessed Comments No Sex and Gender Information Value Date Recorded Sex Assigned at Female 10/08/2023 2:03 PM EDT Legal Sex Female 10:05 AM EDT Gender Identity Not on file Sexual Orientation Not on file Last Filed Vital Signs Vital Sign Reading Time Taken Comments Blood Pressure - - Pulse - - Temperature - - Respiratory Rate - - Oxygen Saturation - - Inhaled Oxygen Concentration - - Weight 74.2 kg (163 lb 9.3 oz) 10/22/2023 10:42 AM EDT Height 162 cm (5' 3.78 ) 10/22/2023 10:42 AM EDT Body Mass Index 28.27 10/22/2023 10:42 AM EDT Plan of Treatment Health Maintenance Due Date Last Done Comments Hepatitis C Virus Screening 1995 HIV Screening 2008 DTaP/Tdap/Td Vaccines (1 - Tdap) 2014 Hepatitis B Vaccines (1 of 3 - 19+ 3-dose series) 2014 Pap Smear (Ages 21-65) 2016 Influenza Vaccine 12/02/2024 2023, , 02/28/2014, Additional history exists COVID-19 Vaccine (2023- season) 2025 HPV Vaccines (No Doses Required) Completed Pneumococcal Vaccine: Pediatric (0-5 Years) and At-Risk Patients (6 to 49 Years) Aged Out No longer eligible based on patient's age to complete this topic Insurance [facility] Advance Directives * Full Code (Latest Code Status on File) Date Activated Date Inactivated Comments 10/01/2023 12:31 PM Care Teams Mobile Health Vehicle Operator Relationship Specialty Start Date End Date Unknown Unknow Provider Address PCP - General 10/08/23 Riddhi Grossman [facility] Maternal and Medicine 09/30/23
[2025-02-13 11:55] LABS: Hematocrit 39.9 % (37.0-47.0); Hemoglobin 13.1 g/dl (12.0-16.0); Mean Corpuscular HGB Conc 32.8 g/dl (31.0-35.0); Mean Corpuscular Hemoglobin 31.2 pg (27.0-33.0); Mean Corpuscular Volume 95.0 fL (80.0-98.0); NRBC Abs Auto 0.000 X10*3/uL (0.0-0.012); NRBC Pct Auto 0.0 /100WBC (0.0-0.2); Platelet Count 260 X10*3/uL (160-400); Red Blood Count 4.20 X10*6/uL (4.20-5.50); White Blood Count 5.3 X10*3/uL (4.8-10.8)
[2025-02-13 12:24] LABS: Alanine Aminotransferase 17 U/L (0-31); Albumin Level 4.2 g/dL (3.5-5.0); Alkaline Phosphatase 91 U/L (39-117); Anion Gap 11 (12-20); Aspartate Amino Transferase 18 U/L (5-31); Blood Urea Nitrogen 13 mg/dL (9-16); Calcium 8.5 mg/dL (8.4-10.2); Carbon Dioxide 27 mmol/L (22-29); Chloride 106 mmol/L (96-108); Estimated Glomerular Filt Rate > 60; Potassium 3.5 mmol/L (3.3-5.1); Sodium 140 mmol/L (135-145); Total Protein 6.8 g/dL (6.5-8.0)
[2025-02-14 23:14] LABS: Class Alternaria alternata 0; Class Aspergillus fumigatus 0; Class Bermuda Grass 0; Class Birch 1; Class Cat Dander 6; Class Cladosporium herbarum 0; Class Cockroach 2; Class Common Ragweed 1; Class Cottonwood 0/1; Class Derm. pterony 3; Class Dermatophagoides farinae 2; Class Dog Dander 4; Class Elm 1; Class Maple Box Elder 2; Class Mountain Cedar 0; Class Mouse Urine Protein 2; Class Mugwort 0/1; Class Oak 0/1; Class Penicillium crysogenum 0; Class Rough Pigweed 2; Class Sheep Sorrel 0; Class Sycamore 0/1; Class Timothy Grass 0; Class Walnut Tree 2; Class White Ash 0; Class White Mulberry 0; D002 - IgE D farinae 2.93 kU/L; E001 - IgE Cat Dander >100 kU/L; E005 - IgE Dog Dander 41.70 kU/L; G006 - IgE Timothy Grass <0.10 kU/L; I006-IgE Cockroach, German 2.58 kU/L; M002 - IgE Cladosporium herbar <0.10 kU/L; M003 - IgE Aspergillus fumigat <0.10 kU/L; M006 - IgE Alternaria alternat <0.10 kU/L; T001 IgE Maple/Box Elder 0.76 kU/L; T006 - IgE Cedar, Mountain <0.10 kU/L; T007 - IgE Oak, White 0.14 kU/L; T008 IgE Elm, American 0.58 kU/L; T010 - IgE Walnut 0.92 kU/L; T011 - IgE Maple Leaf Sycamore 0.16 kU/L; T014 - IgE Cottonwood 0.12 kU/L; T015 - IgE Ash, White <0.10 kU/L; T070 - IgE White Mulberry <0.10 kU/L; W001 - IgE Ragweed, Short 0.46 kU/L; W006 - IgE Mugwort 0.11 kU/L; W014 IgE Pigweed, Common 1.11 kU/L; W018 IgE Sheep Sorrel <0.10 kU/L
== END 2025-02-13 11:05 | disposition home or self-care (01) ==
LOC: HO.XRAY 11:04
PROVIDERS: PCP Physician Assistant; Visit Provider Physician Assistant
DX: Z13.1 Encounter for screening for diabetes mellitus (principal); F33.1 Major depressive disorder, recurrent, moderate; J30.89 Other allergic rhinitis; M25.562 Pain in left knee; R05.9 Cough, unspecified
CPT/HCPCS: 36415; 73564; 80053; 82306; 82785; 85027; 86003

== ENCOUNTER → 2025-02-13 11:16 | Outpatient (BNV) | payer OTHER, SELFPAY | PROVIDERS: PCP Physician Assistant; Visit Provider Radiology Diagnostic Radiology | DX: M25.562 Pain in left knee (principal) | CPT/HCPCS: 73564 ==